=== PATIENT | male | born 1990 | race Caucasian/White ===

== ENCOUNTER → 2023-11-21 | Outpatient (CLI) | payer BC, SELFPAY ==
[2023-11-21 17:45] LABS: Hematocrit 38.4 % (40-54); Hemoglobin 13.3 g/dL (13.0-16.5); Mean Corp Hgb Conc 34.6 g/dL (32-36); Mean Corpuscular Hgb 31.1 pg (27.0-32.0); Mean Corpuscular Volume 89.7 fL (80-94); Mean Platelet Vol. 10.2 fl (6.2-12.0); Platelet Count 233 K/mm3 (150-450); RBC Distribution Width CV 11.9 % (11.6-14.6); RBC Distribution Width SD 38.9 fl (35.1-43.9); Red Blood Count 4.28 M/mm3 (4.6-6.2); White Blood Count 4.7 K/mm3 (4.4-11.0)
[2023-11-21 18:39] LABS: Vitamin B12 477 pg/mL (211-911); Vitamin D,25 Hydroxy 16.1 ng/mL
[2023-11-21 18:43] LABS: ALB/GLOB Ratio 1.3 RATIO (0.9-2.4); AST(SGOT) 30 U/L (15-37); Alanine Aminotransfer ALT/SGPT 36 U/L (16-61); Albumin, Serum 4.2 g/dL (3.2-5.0); Alkaline Phosphatase 63 U/L (45-117); Anion Gap 5 (5-15); BUN 16 mg/dL (7-18); BUN/Creat Ratio 15.5 RATIO (10-20); Calcium,Total 9.3 mg/dL (8.5-10.1); Chloride 101 mmol/L (98-107); Creatinine, Serum 1.03 mg/dL (0.70-1.30); EST Glomerular Filtration Rate 87 mL/min (>60); Est Glom Filt Rate - Afr Amer 105 mL/min (>60); Ferritin 54 ng/mL (26-388); GGTP 35 U/L (15-85); Globulin 3.3 g/dL (2.2-4.2); Glucose 92 mg/dL (74-106); Iron 115 ug/dL (65-175); Potassium 4.3 mmol/L (3.5-5.1); Protein, Total 7.5 g/dL (6.4-8.2); Sodium Level 134 mmol/L (136-145); Thyroid Stim Hormone (TSH) 0.73 uIU/mL (0.358-3.74)
== END | disposition home or self-care (01) ==
LOC: MFPLAB 16:54
PROVIDERS: Visit Provider Family Medicine
DX: F32.A Depression, unspecified (principal); F10.10 Alcohol abuse, uncomplicated; Y90.9 Presence of alcohol in blood, level not specified
CPT/HCPCS: 36415; 80053; 82306; 82607; 82728; 82977; 83540; 84403; 84443; 85027

== ENCOUNTER 2024-12-14 08:49 | Inpatient (IN) | payer BC, SELFPAY ==
[2024-12-14] VITALS (8 sets, daily range): BP systolic 115–189; BP diastolic 72–121; PULSE 62–72; RESP 14–17; TEMP 36.4–36.7; O2SAT 97–100; BMI 21.6; BMI 22.0
--- NOTE | 2024-12-14 09:02 | EDS_ITS ---
HPI History of Present Illness Chief Complaint: Substance Abuse Informant: patient Onset/Context/Timing Onset: - (15 years.) Context: Gradual Onset Timing: Continuous Current Severity: Moderate Maximum Severity: Moderate Narrative Narrative: 34-year-old male no stated past medical history of an alcohol abuse. States his mother had alcohol problems. He has never been through inpatient detox. States he is now drinking about 15 beers a day of 10 to 13% alcohol. Denies liquor. Denies drug abuse. Prior similar symptoms: Yes Recent Illness/Hospitalization: No [facility] Medical History (Updated 12/14/24 @ 09:[address] Stefan Gasca MD) Insomnia Depression Home Medications ?Medication ?Instructions ?Recorded ?Last Taken ?Type citalopram 20 mg tablet 20 mg PO DAILY 12/14/2411/22 History Allergy/AdvReac Type Severity Reaction Status Date / Time No Known Allergies Allergy Verified 12/14/24 08:50 ROS ROS ED ROS Narrative Denies recent illness. Constitutional Constitutional ED: Denies chills or fever(s) Eyes Eyes: Denies blurry vision ENT ENT ED: Denies ear pain Cardiovascular Cardiovascular: Denies chest pain or palpitations Respiratory/Chest Respiratory/Chest: Denies cough or dyspnea Gastrointestinal Gastrointestinal: Denies abdominal pain, diarrhea, melena, nausea or vomiting Genitourinary Genitourinary ED: Denies dysuria Musculoskeletal Musculoskeletal: Denies arthralgias Integumentary Denies abscess Neurologic Neurologic: Denies headache(s) Psychiatric Psychiatric: Denies anxiety Endocrine Endocrinology: Denies cold intolerance or heat intolerance Hematologic/Lymphatic Hematologic/Lymphatic: Denies easy bleeding Allergic/Immunologic Allergic/Immunologic ED: Denies mouth swelling EXAM Physical Exam Narrative Exam Narrative: Well-appearing 34-year-old male. Vital signs stable afebrile. H EENT exam pupils round react light. Moist mucous membranes. Neck nontender no JVD. Lungs clear to auscultation bilaterally. Heart regular rhythm rate about 70 no murmur. Chest wall ribs nontender. Abdomen soft nontender. Moving all 4 extremities. Nontender no edema. Back nontender. Neurologically is awake and alert. Answering questions following commands. Mildly anxious. Const Vital Signs: 12/14/24 08:50 Temperature 97.8 F Temperature Source Oral Pulse Rate 69 Respiratory Rate 16 Blood Pressure 189/121 H Blood Pressure Mean 143 Pulse Ox 100 Oxygen Delivery Method Room Air Positive well nourished and well developed; Negative for obese, cachectic, contractures or unkempt General Appearance ED: well developed and NAD; Negative for unkempt, cachectic, contractures or pallor Nutritional Appearance: Negative for cachectic or obese HEENT Reports moist mucous membranes atraumatic; Negative for trauma or tenderness Eyes PERRL and EOMs intact bilaterally Neck no lymphadenopathy, supple and no JVD Lymph Lymphatic: no lymphadenopathy noted Chest Wall inspection of chest normal and palpation of chest normal Resp normal respiratory effort and clear to auscultation bilaterally Cardio regular rate, regular rhythm, S1 normal heart sound, S2 normal heart sound and no murmurs Rate: Negative for bradycardia or tachycardic Rhythm: Negative for abnormal rhythm GI soft to palpation, non-tender, non-distended and no masses Palpation: Negative for tender, guarding or rigid Back/Spine no CVA tenderness Extremity General Extremety ED: Negative for edema or tenderness General Extremity: Negative for edema Neuro oriented x3 and CN's II-XII intact bilaterally Sensorium / Orientation: alert, oriented to person, oriented to place and oriented to time; Negative for confused, lethargic or stuporous Speech: speech normal Motor Exam: strength 5/5 throughout Psych mental status grossly normal and thought process normal Appearance: Negative for unkempt Attitude: No belligerent, No agitated, No aggressive and No hostile Mood & Affect: anxious Skin General Skin Exam: Negative for jaundice or pallor Lesions: no lesions Rashes: no rashes Trauma: Negative for abrasion or laceration MDM MDM MDM Narrative Medical decision making narrative: 34-year-old male history of alcohol abuse for 15 years requesting detox. Screening detox labs. Hospitalist on page for admission. Repeat exam patient is doing well at 9:40 AM. He does not fully admit he is depressed. He has no plan to commit suicide. He is never attempted in the past. Said he would not do it. I do not feel he needs a sitter. History & Record Review Discussion w/independent historian: Patient Lab Data Attestation: I reviewed the patient's lab results. Lab results narrative: CBC shows a white count of 5 H&H 13 and 41. Platelets 271. Chemistries show gap 9. BUN and creatinine of five 0.9. Glucose 92. Liver enzymes unremarkable. Urine tox screen negative. Labs: Laboratory Results - last 24 hr 12/14/24 12/14/24 09:05 09:10 WBC 5.5 RBC 4.54 L Hgb 13.8 Hct 41.4 MCV 91.2 MCH 30.4 MCHC 33.3 RDW Std Deviation 40.5 RDW Coeff of Ariel 12.0 Plt Count 271 MPV 9.9 Immature Gran % (Auto) 0.200 Neut % (Auto) 54.4 Lymph % (Auto) 29.1 [place] % (Auto) 11.0 H Eos % (Auto) 4.8 Baso % (Auto) 0.5 Absolute Neuts (auto) 3.0 Absolute Lymphs (auto) 1.59 Nucleated RBC % 0 Sodium 136 Potassium 3.8 Chloride 98 Carbon Dioxide 29.0 Anion Gap 9 BUN 5 L Creatinine 0.90 Estim Creat Clear Calc 103.37 Est GFR (MDRD) Af Amer 123 Est GFR (MDRD) Non-Af 102 BUN/Creatinine Ratio 5.6 L Glucose 92 Calcium 8.9 Total Bilirubin 0.30 AST 40 H ALT 52 Alkaline Phosphatase 77 Total Protein 7.5 Albumin 4.1 Globulin 3.4 Albumin/Globulin Ratio 1.2 Urine Opiates Screen NEGATIVE Urine Methadone Screen NEGATIVE Ur Barbiturates Screen NEGATIVE Ur Phencyclidine Scrn NEGATIVE Ur Amphetamines Screen NEGATIVE MDMA (Ecstasy) Screen NEGATIVE U Benzodiazepines Scrn NEGATIVE Urine Cocaine Screen NEGATIVE U Cannabinoids Screen NEGATIVE Ur Drug Screen Comment Discharge Plan Dx/Rx/DC Orders Clinical Impression: Alcohol abuse, Admitted to alcohol detoxification center, Depression Disposition Disposition: Acute Care Hospital [facility]
--- NOTE | 2024-12-14 09:07 | ED.RN ---
Patient states he is having thoughts of harming self but denies having a plan. Denies any previous attempts of harming self.
[2024-12-14 09:21] LABS: Absolute Lymphocyte Count 1.59 X10^3/uL (0.83-4.51); Basophil# 0.03 X10^3/uL; Basophil% 0.5 % (0-1); Eosinophil# 0.26 X10^3/uL; Eosinophils% 4.8 % (0-5); Hematocrit 41.4 % (40-54); Hemoglobin 13.8 g/dL (13.0-16.5); Lymphocyte # 1.59 X10^3/ul (0.83-4.51); Lymphocyte % 29.1 % (19-41); Mean Corp Hgb Conc 33.3 g/dL (32-36); Mean Corpuscular Hgb 30.4 pg (27.0-32.0); Mean Corpuscular Volume 91.2 fL (80-94); Mean Platelet Vol. 9.9 fl (6.2-12.0); NRBC Flagged by Analyzer 0 % (0-5); Neutrophil # 2.97 X10^3/uL (2.7-7.7); Neutrophil % 54.4 % (47-70); Platelet Count 271 K/mm3 (150-450); RBC Distribution Width SD 40.5 fl (35.1-43.9); Red Blood Count 4.54 M/mm3 (4.6-6.2); White Blood Count 5.5 K/mm3 (4.4-11.0)
[2024-12-14 09:30] LABS: Amphetamine Urine NEGATIVE (<1000 ng/mL); Barbiturate Urine VISTA NEGATIVE (< 200 ng/mL); Benzodiazepine Urine VISTA NEGATIVE (< 200 ng/mL); Cocaine Urine VISTA NEGATIVE (< 300 ng/mL); Ecstacy Urine VISTA NEGATIVE (< 500 ng/mL); Methadone Urine VISTA NEGATIVE (< 300 ng/mL); Opiates Urine NEGATIVE (< 300 ng/mL); PCP Urine NEGATIVE (< 25 ng/mL); THC Urine VISTA NEGATIVE (< 50 ng/mL); Vista UDS pH Range 7
[2024-12-14 09:38] LABS: ALB/GLOB Ratio 1.2 RATIO (0.9-2.4); AST(SGOT) 40 U/L (15-37); Alanine Aminotransfer ALT/SGPT 52 U/L (16-61); Albumin, Serum 4.1 g/dL (3.2-5.0); Alkaline Phosphatase 77 U/L (45-117); Anion Gap 9 (5-15); BUN 5 mg/dL (7-18); BUN/Creat Ratio 5.6 RATIO (10-20); Calcium,Total 8.9 mg/dL (8.5-10.1); Chloride 98 mmol/L (98-107); EST Glomerular Filtration Rate 102 mL/min (>60); Est Glom Filt Rate - Afr Amer 123 mL/min (>60); Estimated Creatinine Clearance 103.37 ml/min; Globulin 3.4 g/dL (2.2-4.2); Glucose 92 mg/dL (74-106); Potassium 3.8 mmol/L (3.5-5.1); Protein, Total 7.5 g/dL (6.4-8.2); Sodium Level 136 mmol/L (136-145)
[2024-12-14] MEDS: Phenobarbital 32.4 MG Tablet 64.8 MG PO ×3 (12:28→20:07)
[2024-12-14] MEDS: Acetaminophen 325 MG Tablet 650 MG PO ×2 (12:29→20:07)
--- NOTE | 2024-12-14 15:25 | HP.PCM.HOS_ITS ---
HPI - General General Date of Admission: 12/14/24 HPI Narrative TERESITA GANDHI, is a 34 M who presents the hospital requesting detox from alcohol. His last drink was a few hours prior to admission with a blood alcohol level 143. He has never gone through detox before however he says he is trying to go on his own cold turkey at home but he is only lasted 24 hours before he started drinking again. He has been a heavy drinker since he was 18 years old. There is also alcohol abuse history in his family with his mother being a current alcoholic and his dad being a daily marijuana user. He denies any other drug use. [facility] Medical History Insomnia Depression Home Medications ?Medication ?Instructions ?Recorded ?Last Taken ?Type citalopram 20 mg tablet 20 mg PO DAILY 12/14/2411/22 History Allergy/AdvReac Type Severity Reaction Status Date / Time No Known Allergies Allergy Verified 12/14/24 08:50 Family History (Updated 12/14/24 @ 15:[address] Shane Lassiter MD) Other Alcohol abuse Surgical History (Updated 12/14/24 @ 15:[address] Shane Lassiter MD) Status post vasectomy Social History Smoking Status: Current every day smoker tobacco type: smokeless tobacco ROS Constitutional Constitutional: Denies chills, fatigue, fever(s) or malaise Eyes Eyes: Denies blurry vision ENT HEENT: Denies headache(s) or nasal discharge Cardiovascular Cardiovascular: Denies chest pain, dyspnea on exertion or syncope Respiratory/Chest Respiratory/Chest: Denies cough, shortness of breath at rest or shortness of breath with exertion Gastrointestinal Gastrointestinal: Denies constipation, diarrhea, nausea or vomiting Genitourinary Genitourinary: Denies dysuria Neurologic Neurologic: Denies focal weakness, numbness or tremor(s) Psychiatric Psychiatric: Denies anxiety or depression Vital Signs Vital Signs Vital Signs: 12/14/24 08:50 12/14/24 10:49 12/14/24 10:52 Temperature 97.8 F Temperature Source Oral Pulse Rate 69 72 Respiratory Rate 16 17 Respiratory Effort Normal Non-Labored Respiratory Depth Normal Respiratory Pattern Normal Blood Pressure 189/121 H Blood Pressure Mean 143 Blood Pressure Source Blood Pressure Position Blood Pressure Location Pulse Ox 100 97 Oxygen Delivery Method Room Air Room Air Room Air 12/14/24 10:53 12/14/24 11:42 12/14/24 11:43 Temperature 97.8 F 97.5 F L 97.5 F L Temperature Source Axillary Axillary Pulse Rate 72 65 65 Respiratory Rate 17 16 16 Respiratory Effort Respiratory Depth Respiratory Pattern Blood Pressure 189/121 H 133/94 H 133/94 H Blood Pressure Mean 143 107 107 Blood Pressure Source Monitor Monitor Blood Pressure Position Semi-Fowlers Semi-Fowlers Blood Pressure Location Right Arm Right Arm Pulse Ox 97 100 100 Oxygen Delivery Method Room Air Room Air Weight Weight: 145 lb 1.027 oz Body Mass Index (BMI) 22.0 Physical Exam Narrative General: Alert, Oriented x3, Cooperative, No apparent distress HEENT: Atraumatic, PERRLA, EOMI, Normocephalic Oral: Moist Mucosa Neck: Supple, No JVD Lungs: Clear to auscultation, Normal air movement, No rhonchi, No wheeze, No rales Cardiovascular: Regular rate, Regular Rhythm, Normal S1, Normal S2, No murmurs Abdomen: Soft, Non Tender, Non-Distended, No Hepato-splenomegaly Extremities: No edema, Capillary Refill Less than 3 Seconds Skin: No rashes, No breakdown Musculoskeletal: No Tenderness to Palpation of Joints or Extremities Neurological: No focal neurological deficits, Motor Exam 5/5 strength throughout, Sensory exam intact to light touch and pain Psych/Mental Status: Normal Affect, Appropriate Results Lab / Micro Data 12/14/24 09:10 12/14/24 09:10 Labs: Laboratory Results - last 24 hr 12/14/24 09:05: Urine Opiates Screen NEGATIVE, Urine Methadone Screen NEGATIVE, Ur Barbiturates Screen NEGATIVE, Ur Phencyclidine Scrn NEGATIVE, Ur Amphetamines Screen NEGATIVE, MDMA (Ecstasy) Screen NEGATIVE, U Benzodiazepines Scrn NEGATIVE, Urine Cocaine Screen NEGATIVE, U Cannabinoids Screen NEGATIVE, Ur Drug Screen Comment 12/14/24 09:10: WBC 5.5, RBC 4.54 L, Hgb 13.8, Hct 41.4, MCV 91.2, MCH 30.4, MCHC 33.3, RDW Std Deviation 40.5, RDW Coeff of Ariel 12.0, Plt Count 271, MPV 9.9, Immature Gran % (Auto) 0.200, Neut % (Auto) 54.4, Lymph % (Auto) 29.1, [place] % (Auto) 11.0 H, Eos % (Auto) 4.8, Baso % (Auto) 0.5, Absolute Neuts (auto) 3.0, Absolute Lymphs (auto) 1.59, Nucleated RBC % 0, Sodium 136, Potassium 3.8, Chloride 98, Carbon Dioxide 29.0, Anion Gap 9, BUN 5 L, Creatinine 0.90, Estim Creat Clear Calc 103.37, Est GFR (MDRD) Af Amer 123, Est GFR (MDRD) Non-Af 102, BUN/Creatinine Ratio 5.6 L, Glucose 92, Calcium 8.9, Total Bilirubin 0.30, AST 40 H, ALT 52, Alkaline Phosphatase 77, Total Protein 7.5, Albumin 4.1, Globulin 3.4, Albumin/Globulin Ratio 1.2, Ethyl Alcohol 143.0 Assessment & Plan Assessment/Plan (1) Alcohol intoxication: (2) Depression: PLAN: Plan 1. Alcohol abuse requesting detox/tobacco abuse/anxiety/depression ? Continue escitalopram ? Continue with the alcohol detox protocol ? LFTs are grossly normal ? Can provide a nicotine patch if requested ? Spent extensive amount of time discussing mental health and behavioral health factors behind alcoholism. He states that he does have a stable home life with his of 16 years DVT: Ambulation 65 minutes was spent on direct patient care, including documentation as well as chart review and collaboration with colleagues Charges/Coding Visit Charges Inpatient E&M: 17119 Init Hosp L2
[2024-12-14] MEDS: hydrOXYzine PAM 25 MG Capsule 50 MG PO (20:06)
[2024-12-14] MEDS: Ondansetron 8 MG Tablet PO (20:07)
[2024-12-15] MEDS: Phenobarbital 32.4 MG Tablet 64.8 MG PO ×6 (00:10→20:50)
[2024-12-15] MEDS: Gabapentin 300 MG Capsule PO ×2 (00:10→12:06)
[2024-12-15 03:43] VITALS: BP 132/84; PULSE 68; RESP 14; TEMP 36.6; O2SAT 99
[2024-12-15] MEDS: Acetaminophen 325 MG Tablet 650 MG PO ×2 (04:29→12:06)
[2024-12-15 07:43] VITALS: BP 115/81; PULSE 55; RESP 16; TEMP 36.2; O2SAT 100
[2024-12-15] MEDS: Folic Acid 1 MG Tablet PO (07:48)
[2024-12-15] MEDS: Thiamine Hydrochloride 100 MG Tablet PO (07:48)
[2024-12-15] MEDS: hydrOXYzine PAM 25 MG Capsule 50 MG PO ×2 (07:50→20:58)
[2024-12-15 11:43] VITALS: BP 123/83; PULSE 68; RESP 16; O2SAT 97
--- NOTE | 2024-12-15 11:47 | PCM.PN.HOSP ---
Subjective Subjective CIWA score 13, no issues overnight Objective Data Objective Data Vital Signs: Vital Signs Temp Pulse Resp BP Pulse Ox O2 Del Method 97.1 F L 55 L 16 115/81 H 100 Room Air 12/15/24 07:43 12/15/24 07:43 12/15/24 07:43 12/15/24 07:43 12/15/24 07:43 12/15/24 07:43 Oxygen Delivery Method Room Air Weight: 145 lb 1.027 oz Body Mass Index (BMI) 22.0 Intake & Output: Intake and Output for Last 24 Hours 12/14/24 12/15/24 12/16/24 03:59 03:59 03:59 Intake Total 1620 / 1620 Output Total / Balance 1618 / 1618 Lab / Micro Data 12/14/24 09:10 12/14/24 09:10 Physical Exam Narrative General: Alert, Oriented x3, Cooperative, restless, tremor HEENT: Atraumatic, PERRLA, EOMI, Normocephalic Oral: Moist Mucosa Neck: Supple, No JVD Lungs: Clear to auscultation, Normal air movement, No rhonchi, No wheeze, No rales Cardiovascular: Regular rate, Regular Rhythm, Normal S1, Normal S2, No murmurs Abdomen: Soft, Non Tender, Non-Distended, No Hepato-splenomegaly Extremities: No edema, Capillary Refill Less than 3 Seconds Skin: No rashes, No breakdown Musculoskeletal: No Tenderness to Palpation of Joints or Extremities Neurological: No focal neurological deficits, Motor Exam 5/5 strength throughout, Sensory exam intact to light touch and pain Psych/Mental Status: Normal Affect, Appropriate Assessment & Plan Assessment/Plan (1) Alcohol intoxication: (2) Depression: PLAN: Plan 1. Alcohol abuse requesting detox/tobacco abuse/anxiety/depression ? Continue escitalopram ? Continue with the alcohol detox protocol ? LFTs are grossly normal ? Can provide a nicotine patch if requested DVT: Ambulation Charges/Coding Visit Charges Inpatient E&M: 62025 Subs Hosp L2
[2024-12-15 16:04] VITALS: BP 116/80; PULSE 61; RESP 16; TEMP 36.4; O2SAT 95
[2024-12-15] MEDS: Citalopram 20 MG Tablet PO (20:50)
[2024-12-15 20:53] VITALS: BP 101/60; PULSE 63; RESP 16; TEMP 36.6; O2SAT 98
[2024-12-15] MEDS: traZODone 100 MG Tablet PO (20:58)
[2024-12-16] VITALS (8 sets, daily range): BP systolic 104–136; BP diastolic 57–89; PULSE 53–77; RESP 15–16; TEMP 36.3–36.6; O2SAT 97–100
[2024-12-16] MEDS: Phenobarbital 32.4 MG Tablet 64.8 MG PO ×6 (01:14→20:19)
[2024-12-16] MEDS: Folic Acid 1 MG Tablet PO (08:00)
[2024-12-16] MEDS: Thiamine Hydrochloride 100 MG Tablet PO (08:01)
[2024-12-16] MEDS: Acetaminophen 325 MG Tablet 650 MG PO ×2 (08:10→20:20)
--- NOTE | 2024-12-16 10:45 | PCM.PN.HOSP ---
Subjective Subjective CIWA score of 4 Objective Data Objective Data Vital Signs: Vital Signs Temp Pulse Resp BP Pulse Ox O2 Del Method 97.9 F 60 16 125/74 H 98 Room Air 12/16/24 08:04 12/16/24 08:04 12/16/24 08:04 12/16/24 08:04 12/16/24 08:04 12/16/24 08:04 Oxygen Delivery Method Room Air Weight: 145 lb 1.027 oz Body Mass Index (BMI) 22.0 Intake & Output: Intake and Output for Last 24 Hours 12/15/24 12/16/24 12/17/24 03:59 03:59 03:59 Intake Total 1620 / 1620 200 / 200 150 / 150 Output Total 2 / 2 Balance 1618 / 1618 200 / 200 150 / 150 Lab / Micro Data 12/14/24 09:10 12/14/24 09:10 Physical Exam Narrative General: Alert, Oriented x3, Cooperative, restless, tremor HEENT: Atraumatic, PERRLA, EOMI, Normocephalic Oral: Moist Mucosa Neck: Supple, No JVD Lungs: Clear to auscultation, Normal air movement, No rhonchi, No wheeze, No rales Cardiovascular: Regular rate, Regular Rhythm, Normal S1, Normal S2, No murmurs Abdomen: Soft, Non Tender, Non-Distended, No Hepato-splenomegaly Extremities: No edema, Capillary Refill Less than 3 Seconds Skin: No rashes, No breakdown Musculoskeletal: No Tenderness to Palpation of Joints or Extremities Neurological: No focal neurological deficits, Motor Exam 5/5 strength throughout, Sensory exam intact to light touch and pain Psych/Mental Status: Normal Affect, Appropriate Assessment & Plan Assessment/Plan (1) Alcohol intoxication: (2) Depression: PLAN: Plan 1. Alcohol abuse requesting detox/tobacco abuse/anxiety/depression ? Continue escitalopram ? Continue with the alcohol detox protocol ? LFTs are grossly normal ? Can provide a nicotine patch if requested ? Awaiting evaluation by 180 for discharge planning DVT: Ambulation Charges/Coding Visit Charges Inpatient E&M: 83487 Subs Hosp L2
[2024-12-16] MEDS: Citalopram 20 MG Tablet PO (20:19)
[2024-12-16] MEDS: traZODone 100 MG Tablet PO (20:38)
[2024-12-17] MEDS: Phenobarbital 32.4 MG Tablet 64.8 MG PO ×3 (01:56→13:51)
[2024-12-17 02:00] VITALS: BP 127/81; PULSE 59; RESP 16; TEMP 36.3; O2SAT 95
[2024-12-17 03:43] VITALS: BP 127/81; PULSE 59; RESP 16; TEMP 36.3; O2SAT 95
[2024-12-17] MEDS: Thiamine Hydrochloride 100 MG Tablet PO (08:03)
[2024-12-17] MEDS: Folic Acid 1 MG Tablet PO (08:03)
[2024-12-17 08:12] VITALS: BP 117/74; PULSE 62; RESP 15; TEMP 36.6; O2SAT 99
[2024-12-17 08:40] VITALS: BP 117/74; PULSE 62; RESP 16; TEMP 36.6; O2SAT 99
--- NOTE | 2024-12-17 11:06 | ADDICTION ---
This development writer met with PT to conduct ASAM, MSE, AUDIT, DUDIT assessments and to plan for d/c. PT A+Ox4 and participated actively. All assessments completed. PT plans to f/u with follow-up treatment services, however he wanted to discuss it with his and employer upon d/c. This worker offered resources based on the area he lives and tx needs. PT did not indicate a need for transportation post d/c from [facility].
[2024-12-17 11:09] VITALS: PULSE 62; RESP 15
[2024-12-17 12:12] VITALS: BP 121/84; PULSE 65; RESP 15; TEMP 36.8; O2SAT 100
--- NOTE | 2024-12-17 13:06 | DCINST_ITS ---
Discharge Instructions Diet Discharge Diet: No restrictions DC O2, CPAP, BIPAP needs Home O2 Discharge instructions: No Dressing / Incision Discharge Activity: Return to Normal Activity Dressing / Incision Call your doctor if you observe: Fever of 101 or Higher, Shortness of breath, Dizziness, Fainting spells, Swelling in the ankles, Chest pain and Increased palpitations (irregular heartbeat) Follow Up Care Test Results: Test results from this visit will be discussed in further detail at your follow- up appointment, if applicable. Discharge Plan Admission Admit Date/Time: 12/14/24 10:09 Attending Provider: hSane Lassiter Primary Care Provider: Ruby Physician,Rosa Primary Discharge Orders/Prescriptions Prescriptions: Continued citalopram 20 mg tablet 20 mg PO DAILY Referrals / Follow Up: Care Physician,No Primary [Primary Care Provider] - NOT,DEFINED [Non-Staff] - Disposition Disposition (needs filled in before D/C Order can be placed): Home, Self Care
--- NOTE | 2024-12-17 14:54 | PCM.DC.SUM ---
Providers Date of Admission: 12/14/24 Primary Care Physician: No Primary Care Phys Reason For Visit: ETOH DETOX Diagnosis Discharge Diagnosis (1) Alcohol intoxication: Status: Acute Code(s): F10.929 - Alcohol use, unspecified with intoxication, unspecified (2) Depression: Status: Acute Code(s): F32.A - Depression, unspecified Medications at Discharge Home Medications citalopram 20 mg tablet 20 mg PO DAILY 12/14/24 Hospital Course Operations None Procedures None Summary of Care Provided Minutes Spent on Discharge: 36 Hospital Course: Per HPI: TERESITA GANDHI, is a 34 M who presents the hospital requesting detox from alcohol. His last drink was a few hours prior to admission with a blood alcohol level 143. He has never gone through detox before however he says he is trying to go on his own cold turkey at home but he is only lasted 24 hours before he started drinking again. He has been a heavy drinker since he was 18 years old. There is also alcohol abuse history in his family with his mother being a current alcoholic and his dad being a daily marijuana user. He denies any other drug use. Hospital Course: 1. Alcohol abuse requesting detox/tobacco abuse/anxiety/depression?34-year-old male presented to the hospital requesting detox from alcohol. He has been an alcoholic for the last 16 years but is never sought detox. He has tried to detox himself at home unsuccessfully. He underwent the alcohol withdrawal protocol which he tolerated very well and he met with 180 today and he elected to proceed with outpatient rehab versus inpatient. I discussed with him the plan for discharge today and he expressed understanding of the risks and benefits of going home and he would like to go today. I had multiple extensive discussions with him during this admission about mental health and behavioral health. Will continue with his home citalopram 20 mg p.o. daily. Physical Exam Narrative General: Alert, Oriented x3, Cooperative, restless, tremor HEENT: Atraumatic, PERRLA, EOMI, Normocephalic Oral: Moist Mucosa Neck: Supple, No JVD Lungs: Clear to auscultation, Normal air movement, No rhonchi, No wheeze, No rales Cardiovascular: Regular rate, Regular Rhythm, Normal S1, Normal S2, No murmurs Abdomen: Soft, Non Tender, Non-Distended, No Hepato-splenomegaly Extremities: No edema, Capillary Refill Less than 3 Seconds Skin: No rashes, No breakdown Musculoskeletal: No Tenderness to Palpation of Joints or Extremities Neurological: No focal neurological deficits, Motor Exam 5/5 strength throughout, Sensory exam intact to light touch and pain Psych/Mental Status: Normal Affect, Appropriate Weight / BMI Weight Weight: 145 lb 1.027 oz Body Mass Index (BMI) 22.0 ABG / Lab / Microbiology Data 12/14/24 09:10 12/14/24 09:10 D/C Instructions Discharge Diet: No restrictions Call your doctor if you observe: Fever of 101 or Higher, Shortness of breath, Dizziness, Fainting spells, Swelling in the ankles, Chest pain and Increased palpitations (irregular heartbeat) DC O2, CPAP, BIPAP Needs Home O2 Discharge instructions: No Meaningful Use Info Meaningful Use Meaningful Use Diagnoses (Choose all that apply): None applicable Ischemic Stroke Statin Dosing Therapy Reference: STATIN DOSE THERAPY REFERENCE: * Patients > 75 years receive moderate or high dose statin therapy. * Patients 75 years or YOUNGER should receive HIGH intensity statin dose unless contraindicated. You will be required to document reason for non-treatment if statin daily dose does not meet guidelines. HIGH DOSE STATIN THERAPY DAILY Atorvastatin > than or = to 40 mg Rosuvastatin > than or = to 20 mg Amlodipine + Atorvastatin > than or = to 2.5/40 mg Ezetimibe + Simvastatin 10/80 mg Simvastatin 80mg Discharge Plan Admission Admit Date/Time: 12/14/24 10:09 Attending Provider: Shane Lassiter Primary Care Provider: Care Physician,Rosa Primary Discharge Orders/Prescriptions Prescriptions: Continued citalopram 20 mg tablet 20 mg PO DAILY Referrals / Follow Up: Care Physician,No Primary [Primary Care Provider] - NOT,DEFINED [Non-Staff] - Disposition Disposition (needs filled in before D/C Order can be placed): Home, Self Care Charges/Coding Visit Charges Inpatient E&M: 51460 Disch Hosp >30min
== END 2024-12-17 14:25 | disposition home or self-care (01) | DRG 897 ==
LOC: ED 09:49 → ICU 10:44 → MS3 12-15 18:41
PROVIDERS: Admitting Provider Family Medicine; Emergency Provider Emergency Medicine; Visit Provider Family Medicine
DX: F10.129 Alcohol abuse with intoxication, unspecified (principal); F17.220 Nicotine dependence, chewing tobacco, uncomplicated; F32.A Depression, unspecified; F41.9 Anxiety disorder, unspecified; Y90.6 Blood alcohol level of 120-199 mg/100 ml; Z79.899 Other long term (current) drug therapy; Z81.1 Family history of alcohol abuse and dependence
CPT/HCPCS: 80053; 80307; 82077; 85025; 99284; A4216